=== PATIENT | male | born 1965 | race Caucasian/White ===

== ENCOUNTER 2018-02-22 08:18 | Emergency (ER) | payer MEDICAID ==
[~2018-02-22] VITALS: Ht 190.5 cm; Wt 100.0 kg
[2018-02-22 08:23] VITALS: BP 127/80; Ht 190.5 cm; Wt 100.0 kg
[2018-02-22] MEDS ORDERED: EFFEXOR37.5 MG PO (08:26)
[2018-02-22] MEDS ORDERED: DICLOFENAC SODI50 MG PO (08:43)
== END 2018-02-22 09:25 | disposition home or self-care (01) ==
LOC: D.ER 08:18
DX: M25.512 Pain in left shoulder (principal)